=== PATIENT | female | born 1940 | race Caucasian/White ===

== ENCOUNTER 2018-06-16 09:24 | Emergency (ER) | payer OTHER ==
[~2018-06-16] VITALS: Ht 152.4 cm; Wt 61.2 kg
[~2018-06-16 09:24] MED LIST: AZITHROMYCIN500 MG PO; BENADRYL25 MG PO; LOSARTAN POTASS50 MG; MEDROL4 MG PO; NORVASC5 MG; OMEPRAZOLE40 MG; PLAVIX75 MG; TUSSIONEX PENNKI5 ML PO; XOPENEX1.25 MG/0. IH
[2018-06-16] MEDS ORDERED: ASA81 MG (09:35)
== END 2018-06-16 14:23 | disposition home or self-care (01) ==
LOC: ER 09:24
DX: R42 Dizziness and giddiness (principal); K29.60 Other gastritis without bleeding